=== PATIENT | female | born 1980 | race Caucasian/White ===

== ENCOUNTER 2024-05-27 11:55 | Emergency (ER) | payer BC ==
[~2024-05-27] VITALS: Ht 160 cm; Wt 61.2 kg
--- NOTE | 2024-05-27 12:05 | EKG ---
[facility] Test Date: 2024-05-27 Test Time: 11:48:29 Pat Name: JORDYN ANN Department: ED Room: Gender: F Insert Operator: [id number] : 1980 Requested By: REMI MONREAL Order Number: [id number] Reading MD: Jose Guadalupe Ibarra Measurements Intervals [place] Rate: 105 P: 63 KS: 171 QRS: 64 QRSD: 103 T: 18 QT: 352 QTc: 465 Interpretive Statements Sinus tachycardia Minimal ST depression, diffuse leads No previous ECG available for comparison RSR' IN V1 OR V2, PROBABLY NORMAL VARIANT Electronically Signed On 05-28-2024 12:18:38 PLATFORM SOFTWARE ENGINEER by Jose Guadalupe Ibarra Please click the below link to view image of tracing.
--- NOTE | 2024-05-27 12:59 | HMCIMG ---
CHEST 1VW REASON: CP COMPARISON: None. FINDINGS: Single view of the chest was obtained. Lungs are clear. Heart size is normal. There is no pulmonary vascular congestion. Mediastinum and bony thorax appear unremarkable. IMPRESSION: 1. Normal single view chest x-ray.
[2024-05-27 14:03] LABS: BASOPHILS # (AUTO) 0.04 K/uL (0.00-0.20); BASOPHILS % (AUTO) 0.6 % (0.0-5.0); EOSINOPHILS # (AUTO) 0.03 K/uL (0.00-0.70); EOSINOPHILS % (AUTO) 0.4 % (0.0-8.0); HEMATOCRIT 35.4 % (36-48); IMMATURE GRANULOCYTE ABSOLUTE 0.01 K/uL (0-1); LYMPHOCYTES # (AUTO) 1.3 K/uL (1.0-4.8); LYMPHOCYTES % (AUTO) 18.7 % (21.0-51.0); MEAN CORPUSCULAR HEMOGLOBIN 30.5 pg (27.0-33.0); MEAN CORPUSCULAR HGB CONC 34.5 g/dL (32.0-36.0); MEAN CORPUSCULAR VOLUME 88.5 fL (79-99); MONOCYTES # (AUTO) 0.5 K/uL (0.1-1.0); MONOCYTES % (AUTO) 6.8 % (3.0-13.0); NEUTROPHILS # (AUTO) 5.2 K/uL (1.8-7.7); NEUTROPHILS % (AUTO) 73.4 % (40.0-77.0); PLATELET COUNT (AUTO) 245 K/uL (130-400); RED CELL DISTRIBUTION WIDTH 11.6 % (11.0-15.5); WHITE BLOOD COUNT (AUTO) 7.1 K/uL (4.8-10.8)
[2024-05-27 14:17] LABS: CREATININE 0.7 mg/dL (0.5-1.0); POTASSIUM 3.5 mmol/L (3.5-5.1)
[2024-05-27 14:30] LABS: MAGNESIUM 1.8 mg/dL (1.80-2.40); THYROID STIMULATING HORMONE 0.76 uIU/mL (0.36-3.74)
--- NOTE | 2024-05-27 14:38 | ERN ---
General Chief Complaint: Palpitations Stated Complaint: PALPITATIONS Time Seen by MD: 12:04 History of Present Illness Initial Comments 44-year-old female who presents with palpitations. She reports that she was driving, she had sudden onset of palpitations. She felt that she thought she was going to pass out. Her hands became numb bilaterally in her legs. Episode lasted for about 10 minutes and symptoms have greatly improved since arriving here in the ER. Denies medical history. Does report a history of anxiety but she has only has a few panic attacks in her life and she is unsure if anything triggered this one. Allergies: Coded Allergies: No Known Allergies (Unverified Allergy, Unknown, 05/27/24) Past Medical History Past Medical History: No Pertinent History Past Surgical History: None Female( History) LMP: May 17, 2024 ROS Dictation CONSTITUTIONAL: No chills, no fever, no weakness, no diaphoresis, no malaise. HEAD/FACE: No signs of trauma. EENT: No eye pain, no blurred vision, no tearing, no double vision, no ear pain, no ear discharge, no nose pain, no nasal congestion, no throat pain, no throat swelling, no mouth pain. RESPIRATORY: No cough, no orthopnea, no SOB, no stridor, no wheezing. CARDIOVASCULAR: Palpitations GASTROINTESTINAL/ABDOMINAL: No abdominal pain, no constipation, no diarrhea, no nausea, no vomiting. GENITOURINARY: No abnormal discharge, no dysuria, no frequent urination, no hematuria. No complaints of pain in the genitals. MUSCULOSKELETAL: No back pain, no gout, no joint pain, no joint swelling, no muscle pain, no muscle stiffness, no neck pain. INTEGUMENTARY: No change in color, no change in hair/nails, no dryness, no lesion, no lumps, no rash. NEUROLOGICAL/PSYCH: No anxiety, not depressed, no emotional problem, no headache, no numbness, no pre-existing deficit, no history of seizures, no tremors, no weakness. HEMATOLOGIC/LYMPHATIC: Not anemic, no history of blood clots, no apparent bleeding, no bruising, glands not swollen. All Systems Negative, Except as Noted. Physical Exam Physical Exam Dictation VITAL SIGNS: Reviewed. GENERAL APPEARANCE: Alert, oriented x3, no acute distress HEAD AND FACE: Non-traumatic. EYES: PERRL, pink conjunctivas, eyelid no trauma, anterior chamber clear. EARS: Pinnas intact and no signs of trauma or erythema. Ear canals clear and no discharge. TMs no erythema. NOSE: No discharge, no bleeding. OROPHARYNX: Mouth normal, teeth no caries, tongue pink. Pharynx clear, no erythema. Tonsils no exudates, no abscesses noted. Mucous membrane moist. NECK: Supple, non-tender, no thyromegaly, no masses, no JVD, no bruits. BREAST: Deferred. CHEST: No tenderness, no crepitus, no paradoxical movement, no retractions. LUNGS: Clear, well-ventilated, symmetric, no rales, no wheezing, no rhonchi, no stridor, good breath sounds bilaterally. HEART: Regular rate, regular rhythm, no murmur, no gallops. VASCULAR: No peripheral edema. ABDOMEN: Soft, positive bowel sounds, nondistended, no guarding, nontender, no rebound, no masses no hepatomegaly, no splenomegaly, no Velasco's sign, no hernias. RECTAL: Deferred. GENITAL: Deferred. NEUROLOGICAL: Normal speech, gross motor function intact, gross sensory function intact. MUSCULOSKELETAL: Neck nontender, full range of motion, back nontender, full range of motion. EXTREMITIES: Nontender, full range of motion. SKIN: Color pink, dry, no turgor, no rash, no lacerations, no abrasions, no contusions. LYMPHATICS: Deferred. Results Laboratory and Microbiology Lab and Micro Result Laboratory Tests Test 05/27/24 13:29 White Blood Count 7.1 K/uL (4.8-10.8) Red Blood Count 4.00 MIL/uL (4.00-5.50) Hemoglobin 12.2 g/dL (12.0-16.0) Hematocrit 35.4 % (36-48) L Mean Corpuscular Volume 88.5 fL (79-99) Mean Corpuscular Hemoglobin 30.5 pg (27.0-33.0) Mean Corpuscular Hemoglobin Concent 34.5 g/dL (32.0-36.0) Red Cell Distribution Width 11.6 % (11.0-15.5) Platelet Count 245 K/uL (130-400) Mean Platelet Volume 10.4 fL (7.5-10.5) Immature Granulocyte % (Auto) 0.1 % (0-1) Neutrophils (%) (Auto) 73.4 % (40.0-77.0) Lymphocytes (%) (Auto) 18.7 % (21.0-51.0) L Monocytes (%) (Auto) 6.8 % (3.0-13.0) Eosinophils (%) (Auto) 0.4 % (0.0-8.0) Basophils (%) (Auto) 0.6 % (0.0-5.0) Neutrophils # (Auto) 5.2 K/uL (1.8-7.7) Lymphocytes # (Auto) 1.3 K/uL (1.0-4.8) Monocytes # (Auto) 0.5 K/uL (0.1-1.0) Eosinophils # (Auto) 0.03 K/uL (0.00-0.70) Basophils # (Auto) 0.04 K/uL (0.00-0.20) Absolute Immature Granulocyte (auto 0.01 K/uL (0-1) Nucleated Red Blood Cells 0.0 % (0.0-0.19) Sodium Level 143 mmol/L (136-145) Potassium Level 3.5 mmol/L (3.5-5.1) Chloride Level 105 mmol/L (101-111) Carbon Dioxide Level 30 mmol/L (21-32) Blood Urea Nitrogen 10 mg/dL (7-18) Creatinine 0.7 mg/dL (0.5-1.0) Glomerular Filtration Rate Calc 111 mL/min (>90) Random Glucose 87 mg/dL (70-105) Total Calcium 8.9 mg/dL (8.5-10.1) Magnesium Level 1.80 mg/dL (1.80-2.40) Troponin I High Sensitivity 6 ng/L (4-50) Thyroid Stimulating Hormone (TSH) 0.76 uIU/mL (0.36-3.74) MDM CC: palpitations Historian: patient Morbidities: Denies Differential diagnosis: Anxiety, panic attack, dysrhythmia, anemia, thyroid disorder, metabolic derangement, other. EKG: Sinus tachycardia rate of 105 normal axis good R-wave progression intervals are stable no STEMI. Independently interpreted by me. Labs: Normal CBC, no anemia. BNP stable electrolytes. Calcium magnesium stable. Troponin and TSH are normal. All labs independently ordered and interpreted by me. Chest x-ray per my independent interpretation: No acute abnormalities, no focal infiltrates. Normal heart size. Patient was symptoms are most consistent with an anxiety attack. Possibly an arrhythmia, although she was kept on telemetry for a while here in the ER there was no signs of arrhythmia. EKGs stable. We will discharge to PCP follow up. Patient may need a Holter monitor. REASON: CP ORDERING PHYSICIAN: REMI MONREAL DO PROCEDURE: CXR1VW - CHEST 1VW CHEST 1VW REASON: CP COMPARISON: None. FINDINGS: Single view of the chest was obtained. Lungs are clear. Heart size is normal. There is no pulmonary vascular congestion. Mediastinum and bony thorax appear unremarkable. IMPRESSION: 1. Normal single view chest x-ray. ED Course Orders Procedure Category Date Status Time 12 Lead Ekg Tracing- EKG 05/27/24 Complete Technical 12:02 ,Urine Test LAB 05/27/24 Logged 12:04 Chest 1vw RAD 05/27/24 Resulted 12:04 Cbc With Differential LAB 05/27/24 Complete 13:18 Basic Metabolic Panel LAB 05/27/24 Complete 13:18 Troponin I High LAB 05/27/24 Complete Sensitivity 13:18 Thyroid Stimulating LAB 05/27/24 Complete Hormone 13:18 Magnesium LAB 05/27/24 Complete 13:18 Vital Signs Date Time Temp Pulse Resp B/P (MAP) Pulse Ox O2 Delivery O2 Flow Rate FiO2 05/27/24 13:33 97 18 128/67 98 Room Air* 0 21 05/27/24 11:57 98.4 108 20 133/93 99 Room Air DX & DISP Disposition: Discharge Departure Impression: Primary Impression: Palpitations Condition: Stable Additional Instructions: There are no dangerous findings on your workup here today. It was unclear what is causing your symptoms, but it may be related to a cardiac dysrhythmia or tympanic attack. Your EKG has been stable here in the ER. Your vital signs are stable. Your chest x-ray is normal. Your lab work (CBC, BMP, magnesium, TSH, troponin) is normal. As we discussed, monitor for further symptoms. Please follow up with your primary doctor because you may need further studies such as a Holter monitor. Referrals: SELF,REFERRAL (PCP) REMI MONREAL DO May 27, 2024 14:38
[2024-05-27 14:42] VITALS: BP 128/79; PULSE 89; RESP 18; TEMP 98.4; O2SAT 100
== END 2024-05-27 14:56 | disposition home or self-care (01) ==
LOC: EDH 11:55 → EDBD 11:55 → EDH 14:56
DX: R00.2 Palpitations (principal)
CPT/HCPCS: 36415; 71045; 80048; 81025; 83735; 84443; 84484; 85025; 93005; 99284